=== PATIENT | male | born 1940 | race Caucasian/White ===

== ENCOUNTER 2019-09-24 18:41 | Emergency (ER) | payer OTHER ==
[~2019-09-24] VITALS: Ht 182.9 cm; Wt 93.0 kg
[~2019-09-24 18:41] MED LIST: ALBUTEROL2.5 MG/31 IH; CARDURA1 MG; CEPHALEXIN 500500 M1; COSOPT EYE DROPS5 ML; COZAAR 50 MG TA50 MG PO; CRANBERRY500 M1; FISH OIL 1,2001 EAC3; LEVAQUIN 500 M500 M3; LISINOPRIL20 MG; LORTABELXR; LOW DOSE ASPIRI81 M1 PO; METAMUCIL197.2 GM; MUCINEX22 ML; NIACIN 500 MG500 M1; TESSALON PERLE100 MG PO; TUSSIONEX PENN473 ML PO; VENTOLIN HFA INH8 GM; VITAMIN D400 UNI1; XALATAN2.5 ML; ZPAK PO
[2019-09-24 19:02] LABS: ABSOLUTE BASOPHILS 0.1 thou/uL (0.0-0.2); ABSOLUTE EOSINOPHILS 0.2 thou/uL (0.0-0.7); ABSOLUTE MONOCYTES 0.4 thou/uL (0.0-1.2); BASOPHILS 1.1 %; EOSINOPHILS 2.8 %; HEMATOCRIT 39.1 % (42.0-52.0); HEMOGLOBIN 13.2 gm/dL (14.0-18.0); MCH 30.8 pg (26.0-34.0); MCHC 33.9 g/dL (28.0-37.0); MCV 90.9 fL (80.0-100.0); MONOCYTES 7.6 %; NUCLEATED RBCS 0 /100WBC; PLATELET COUNT* 224 thou/uL (150-400); POLYS 71.5 %; RDW-CV 14.2 % (10.5-14.5); WBC 5.7 thou/uL (4.0-11.0)
[2019-09-24 19:12] LABS: CALCIUM 8.1 mg/dL (8.5-10.1); POTASSIUM 4.1 mmol/L (3.5-5.1)
[2019-09-24 19:16] LABS: PROTIME 10.3 Seconds (9.20-11.50)
[2019-09-24 19:22] LABS: ALBUMIN 3.7 g/dL (3.4-5.0); TOTAL BILIRUBIN 0.4 mg/dL (<0.1-1.0); TOTAL PROTEIN 7.6 g/dL (6.4-8.2)
[2019-09-24 19:37] LABS: URINE BILIRUBIN NEGATIVE (Negative); URINE BLOOD TRACE (Negative); URINE CLARITY CLEAR; URINE COLOR STRAW; URINE GLUCOSE-RANDOM NEGATIVE (Negative); URINE KETONES NEGATIVE (Negative); URINE LEUKOCYTES-REFLEX NEGATIVE (Negative); URINE NITRITE-REFLEX NEGATIVE (Negative); URINE PROTEIN 1+ (Negative); URINE UROBILINOGEN 0.2 E.U./dl (0.2-1.0)
[2019-09-24 20:59] VITALS: BP 143/71
--- NOTE | 2019-09-25 10:35 | EKG ---
[place] [address] ELECTROCARDIOGRAM REPORT Name: SYLVIA LOCKETT Room: [facility]#: [id number] Admission: 09/24/19 Attend Phys: Discharge: 09/24/19 Date of : 36 Report #: [id number] THIS REPORT FOR: //name// [facility] ED Test Date: 2019-09-24 Test Time: 18:46:18 Pat Name: SYLVIA LOCKETT Department: Room: Gender: M Assistant Floor Covering Printer: [place] : 1940 Requested By: Meir Pickering Order Number: [id number] MD: Néstor Escamilla Measurements Intervals [place] Rate: 63 P: 0 [place]: 211 QRS: 31 QRSD: 100 T: 98 QT: 405 QTc: 415 Interpretive Statements Sinus rhythm Abnormal R-wave progression, early transition Minimal ST depression, anterolateral leads Compared to ECG 08/10/2011 14:30:55 ST (T wave) deviation now present Sinus arrhythmia Electronically Signed On 09-25-2019 10:34:56 AIR GUN OPERATOR by Néstor Escamilla [email or web address] <ELECTRONICALLY SIGNED> By: Darwin Escamilla MD, FAC 09/25/19 1034 1846 1846 F. Néstor Escamilla MD, [facility] /EPI
== END 2019-09-24 20:59 | disposition home or self-care (01) ==
LOC: M.ERS 18:41
PROVIDERS: Emergency Medicine
DX: I10 Essential (primary) hypertension (principal); Z88.1 Allergy status to other antibiotic agents; Z88.2 Allergy status to sulfonamides; Z88.6 Allergy status to analgesic agent; Z88.8 Allergy status to other drugs, medicaments and biological substances; Z87.01 Personal history of pneumonia (recurrent)

== ENCOUNTER 2019-10-06 10:52 | Inpatient (IN) | payer OTHER ==
[~2019-10-06] VITALS: Ht 182.9 cm; Wt 93.9 kg
--- NOTE | ~2019-10-06 | EKG ---
[place] [address] ELECTROCARDIOGRAM REPORT Name: SYLVIA LOCKETT Room: [address] IN M.R.#: [id number] Admission: 10/06/19 Attend Phys: Hilary william Sa Discharge: 10/16/19 Date of : 36 Date of Service: 10/14/19 1901 Report #: [id number] THIS REPORT FOR: cc: Perri Celestin MD, Tuongvan T. MD Epiphany, Epiphany MD ~ THIS REPORT FOR: //name// [facility] Test Date: 2019-10-14 Test Time: 19:01:43 Pat Name: SYLVIA LOCKETT Department: Room: [facility] Gender: M Restaurant Cook: [place] : 1940 Requested By: Hilary Hernandez Order Number: [id number] Reading MD: Measurements Intervals [place] Rate: 119 P: 39 CT: 186 QRS: 44 QRSD: 95 T: 56 QT: 367 QTc: 517 Interpretive Statements Sinus tachycardia with irregular rate Probable LVH with secondary repol abnrm Prolonged QT interval Baseline wander in lead(s) V1 Compared to ECG 10/13/2019 12:06:51 Prolonged QT interval now present Sinus rhythm no longer present [email or web address] By: 00 00 Epiphany MD Kristen /EPI
--- NOTE | ~2019-10-06 | EKG ---
[place] [address] ELECTROCARDIOGRAM REPORT Name: SYLVIA LOCKETT Room: [address] ADM IN M.R.#: [id number] Admission: 10/06/19 Attend Phys: Hilary Ritchie Discharge: Date of : 36 Report #: [id number] THIS REPORT FOR: //name// [facility] Test Date: 2019-10-13 Test Time: 12:06:51 Pat Name: SYLVIA LOCKETT Department: Room: [address] Gender: M Office Support Associate: [place] : 1940 Requested By: Hilary Hernandez Order Number: [id number] Reading MD: Measurements Intervals [place] Rate: 72 P: 23 ID: 167 QRS: 37 QRSD: 99 T: 44 QT: 423 QTc: 463 Interpretive Statements Sinus rhythm Borderline repol abnrm, anterolateral leads Compared to ECG 10/10/2019 14:34:25 Atrial premature complex(es) no longer present [email or web address] By: 1206 1206 Epiphany Epiphany, /EPI
[~2019-10-06 10:52] MED LIST changes: -CARDURA1 MG; +CARDURA1 MG PO; -COSOPT EYE DROPS5 ML; +COSOPT EYE OPHTHALMIC; +CRANBERRY200 MG PO; -FISH OIL 1,2001 EAC3; +FISH OIL 1,2001 EAC3 PO; +METAMUCIL0.4 GM PO; -METAMUCIL197.2 GM; -NIACIN 500 MG500 M1; +NIACIN 500 MG500 M1 PO; -VITAMIN D400 UNI1; +VITAMIN D400 UNIT PO; -XALATAN2.5 ML; +XALATAN2.5 ML OPHTHALMIC
[2019-10-06 10:55] VITALS: BP 148/75
[2019-10-06] MEDS ORDERED: DOXAZOSIN MESYLA2 MG PO (11:04)
[2019-10-06 11:15] LABS: HEMATOCRIT 41.3 % (42.0-52.0); HEMOGLOBIN 13.9 gm/dL (14.0-18.0); MCH 30.8 pg (26.0-34.0); MCHC 33.7 g/dL (28.0-37.0); MCV 91.4 fL (80.0-100.0); MPV 8.2 fl. (7.2-11.1); NUCLEATED RBCS 0 /100WBC; PLATELET COUNT* 236 thou/uL (150-400); RBC 4.52 mil/uL (4.50-6.00); RDW-CV 14.3 % (10.5-14.5); WBC 7.7 thou/uL (4.0-11.0)
[2019-10-06 11:26] LABS: CALCIUM 10.2 mg/dL (8.5-10.1); CREATININE 1.9 mg/dL (0.6-1.3); POTASSIUM 4.5 mmol/L (3.5-5.1)
[2019-10-06 11:31] LABS: ALBUMIN 3.9 g/dL (3.4-5.0); TOTAL BILIRUBIN 0.9 mg/dL (<0.1-1.0); TOTAL PROTEIN 7.8 g/dL (6.4-8.2)
[2019-10-06 11:41] LABS: ABSOLUTE EOSINOPHILS 0.1 thou/uL (0.0-0.7); ABSOLUTE LYMPHOCYTES 0.5 thou/uL (0.8-5.3); ABSOLUTE MONOCYTES 0.2 thou/uL (0.0-1.2); ABSOLUTE NEUTROPHILS 6.9 thou/uL (1.6-8.1); PLATELET ESTIMATE ADEQUATE
[2019-10-06 11:42] LABS: ANISOCYTOSIS 1+; OVALOCYTES 1+; POIKILOCYTOSIS 1+
[2019-10-06 13:51] VITALS: BP 139/70
--- NOTE | 2019-10-06 14:10 | EKG ---
[place] [address] ELECTROCARDIOGRAM REPORT Name: SYLVIA LOCKETT Room: [address] ADM IN M.R.#: [id number] Admission: 10/06/19 Attend Phys: Hilary Ritchie Discharge: Date of : 36 Report #: [id number] THIS REPORT FOR: //name// [facility] ED Test Date: 2019-10-06 Test Time: 11:09:03 Pat Name: SYLVIA LOCKETT Department: Room: [facility] Gender: M Mri Technologist: : 1940 Requested By: Abel Morales Order Number: [id number] MD: Rich Henley Measurements Intervals [place] Rate: 72 P: 70 [place]: 217 QRS: 57 QRSD: 98 T: 73 QT: 376 QTc: 412 Interpretive Statements Sinus rhythm Borderline prolonged [place] interval Compared to ECG 09/24/2019 18:46:18 ST (T wave) deviation no longer present Electronically Signed On 10-06-2019 14:10:10 PLISSE MACHINE OPERATOR HELPER by Rich Henley [email or web address] <ELECTRONICALLY SIGNED> By: Rich Henley MD, [facility] 10/06/19 1410 1109 1109 Rich Henley MD, [facility] /EPI
[2019-10-06] MEDS ORDERED: VITAMIN B-121000 MC2 PO (14:20)
[2019-10-06 14:40] VITALS: BP 177/71
[2019-10-06 15:59] LABS: URINE BILIRUBIN NEGATIVE (Negative); URINE BLOOD NEGATIVE (Negative); URINE CLARITY CLEAR; URINE COLOR YELLOW; URINE GLUCOSE-RANDOM NEGATIVE (Negative); URINE KETONES 1+ (Negative); URINE LEUKOCYTES-REFLEX NEGATIVE (Negative); URINE NITRITE-REFLEX NEGATIVE (Negative); URINE PROTEIN NEGATIVE (Negative); URINE UROBILINOGEN 0.2 E.U./dl (0.2-1.0)
[2019-10-06 20:00] VITALS: BP 164/80
[2019-10-06 21:30] VITALS: BP 202/69
[2019-10-07] VITALS: BP 158/75
[2019-10-07 04:17] LABS: HEMATOCRIT 38.2 % (42.0-52.0); HEMOGLOBIN 13.2 gm/dL (14.0-18.0); MCH 31.3 pg (26.0-34.0); MCHC 34.5 g/dL (28.0-37.0); MCV 90.5 fL (80.0-100.0); MPV 8.4 fl. (7.2-11.1); RBC 4.21 mil/uL (4.50-6.00); WBC 5.1 thou/uL (4.0-11.0)
[2019-10-07 04:25] LABS: ALBUMIN 3.1 g/dL (3.4-5.0); CALCIUM 8.9 mg/dL (8.5-10.1); CREATININE 1.7 mg/dL (0.6-1.3); MAGNESIUM 1.7 mg/dL (1.8-2.4); PHOSPHORUS* 4.3 mg/dL (2.5-4.9); POTASSIUM 4.3 mmol/L (3.5-5.1); TOTAL PROTEIN 6.4 g/dL (6.4-8.2)
[2019-10-07 09:50] VITALS: BP 145/51
[2019-10-07 15:30] VITALS: BP 164/67
[2019-10-07 21:30] VITALS: BP 202/69
[2019-10-07 23:36] VITALS: BP 181/72
[2019-10-08 04:30] VITALS: BP 180/73
[2019-10-08 05:35] LABS: CREATININE 1.5 mg/dL (0.6-1.3); POTASSIUM 3.8 mmol/L (3.5-5.1)
[2019-10-08 07:30] VITALS: BP 140/60
[2019-10-08 16:18] VITALS: BP 146/66
[2019-10-08 21:00] VITALS: BP 182/65
[2019-10-08 23:51] VITALS: BP 146/44
[2019-10-09 04:40] LABS: HEMATOCRIT 36.7 % (42.0-52.0); HEMOGLOBIN 12.7 gm/dL (14.0-18.0); MCH 31.4 pg (26.0-34.0); MCHC 34.6 g/dL (28.0-37.0); MCV 90.8 fL (80.0-100.0); MPV 8.5 fl. (7.2-11.1); RBC 4.04 mil/uL (4.50-6.00); RDW-CV 13.8 % (10.5-14.5); WBC 6.4 thou/uL (4.0-11.0)
[2019-10-09 04:56] LABS: CALCIUM 7.9 mg/dL (8.5-10.1); CREATININE 1.6 mg/dL (0.6-1.3); MAGNESIUM 1.9 mg/dL (1.8-2.4); PHOSPHORUS* 2.5 mg/dL (2.5-4.9); POTASSIUM 3.8 mmol/L (3.5-5.1)
[2019-10-09 08:14] VITALS: BP 163/66
[2019-10-09 16:05] VITALS: BP 158/72
[2019-10-09 20:00] VITALS: BP 115/70
[2019-10-10 04:36] LABS: ABSOLUTE LYMPHOCYTES 0.4 thou/uL (0.8-5.3); ABSOLUTE MONOCYTES 0.7 thou/uL (0.0-1.2); ABSOLUTE NEUTROPHILS 3.8 thou/uL (1.6-8.1); BASOPHILS 0.2 %; EOSINOPHILS 0.2 %; HEMATOCRIT 35.1 % (42.0-52.0); HEMOGLOBIN 12.2 gm/dL (14.0-18.0); LYMPHOCYTES 7.2 %; MCH 31.5 pg (26.0-34.0); MCHC 34.7 g/dL (28.0-37.0); MPV 8.6 fl. (7.2-11.1); NUCLEATED RBCS 0 /100WBC; PLATELET COUNT* 210 thou/uL (150-400); POLYS 78.4 %; RBC 3.86 mil/uL (4.50-6.00); RDW-CV 14.1 % (10.5-14.5); WBC 4.9 thou/uL (4.0-11.0)
[2019-10-10 04:42] LABS: CALCIUM 7.2 mg/dL (8.5-10.1); CREATININE 1.5 mg/dL (0.6-1.3); MAGNESIUM 1.8 mg/dL (1.8-2.4); PHOSPHORUS* 3.7 mg/dL (2.5-4.9); POTASSIUM 3.8 mmol/L (3.5-5.1)
[2019-10-10 07:50] VITALS: BP 146/72
--- NOTE | 2019-10-10 14:42 | EKG ---
[place] [address] ELECTROCARDIOGRAM REPORT Name: SYLVIA LOCKETT Room: [address] ADM IN M.R.#: [id number] Admission: 10/06/19 Attend Phys: Hilary Ritchie Discharge: Date of : 36 Report #: [id number] THIS REPORT FOR: //name// [facility] Test Date: 2019-10-10 Test Time: 14:34:25 Pat Name: SYLVIA LOCKETT Department: Room: [address] Gender: M Technical Solutions Director: : 1940 Requested By: Hilary Hernandez Order Number: [id number] Reading MD: Rich Henley Measurements Intervals [place] Rate: 87 P: -16 [place]: 161 QRS: 18 QRSD: 93 T: 3 QT: 329 QTc: 396 Interpretive Statements Sinus rhythm Atrial premature complexes Nonspecific repol abnormality, diffuse leads Compared to ECG 10/06/2019 11:09:03 Atrial premature complex(es) now present Early repolarization now present Electronically Signed On 10-10-2019 14:41:52 BOOM STICK MAN by Rich Henley [email or web address] <ELECTRONICALLY SIGNED> By: Rich Henley MD, FAC 10/10/19 1441 1434 1434 Rich Henley MD, [facility] /EPI
[2019-10-10 16:00] VITALS: BP 161/75
[2019-10-10 19:30] VITALS: BP 153/73
[2019-10-11 05:34] LABS: ABSOLUTE EOSINOPHILS 0.1 thou/uL (0.0-0.7); ABSOLUTE LYMPHOCYTES 0.6 thou/uL (0.8-5.3); ABSOLUTE MONOCYTES 0.9 thou/uL (0.0-1.2); BASOPHILS 0.4 %; EOSINOPHILS 1.9 %; HEMATOCRIT 32.7 % (42.0-52.0); HEMOGLOBIN 11.2 gm/dL (14.0-18.0); LYMPHOCYTES 9.5 %; MCHC 34.1 g/dL (28.0-37.0); MCV 90.9 fL (80.0-100.0); MONOCYTES 13.1 %; MPV 9.1 fl. (7.2-11.1); NUCLEATED RBCS 0 /100WBC; PLATELET COUNT* 194 thou/uL (150-400); POLYS 75.1 %; RDW-CV 13.8 % (10.5-14.5); WBC 6.6 thou/uL (4.0-11.0)
[2019-10-11 05:46] LABS: CALCIUM 7.4 mg/dL (8.5-10.1); CREATININE 1.5 mg/dL (0.6-1.3); MAGNESIUM 1.9 mg/dL (1.8-2.4); PHOSPHORUS* 1.9 mg/dL (2.5-4.9); POTASSIUM 3.5 mmol/L (3.5-5.1)
[2019-10-11 07:30] VITALS: BP 186/71
[2019-10-11 16:00] VITALS: BP 186/76
[2019-10-11 18:10] VITALS: BP 183/69
[2019-10-11 19:05] VITALS: BP 173/74
[2019-10-11 22:26] VITALS: BP 164/62
[2019-10-12 02:59] VITALS: BP 182/78
[2019-10-12 06:54] LABS: HEMATOCRIT 34.5 % (42.0-52.0); HEMOGLOBIN 11.8 gm/dL (14.0-18.0); MCHC 34.3 g/dL (28.0-37.0); MCV 90.4 fL (80.0-100.0); MPV 9.5 fl. (7.2-11.1); RBC 3.81 mil/uL (4.50-6.00); RDW-CV 13.7 % (10.5-14.5); WBC 8.2 thou/uL (4.0-11.0)
[2019-10-12 07:14] LABS: CALCIUM 7.6 mg/dL (8.5-10.1); CREATININE 1.3 mg/dL (0.6-1.3); MAGNESIUM 1.7 mg/dL (1.8-2.4); PHOSPHORUS* 2.2 mg/dL (2.5-4.9); POTASSIUM 3.4 mmol/L (3.5-5.1)
[2019-10-12 09:00] VITALS: BP 172/76
--- NOTE | 2019-10-12 10:07 | PATH ---
[address] [address] PATHOLOGY RPT PROCEDURE Name: TACO LOCKETT Room: [address] IN ..#: [id number] Admission: 10/06/19 Date of : 36 Discharge: Report #: [id number] Path Case #: [id number] L[facility] Accession Number: [id number] . 01 Material submitted: . small bowel - DISTAL SMALL BOWEL WITH MECKEL'S DIVERTICULUM. Modifiers: distal . 01 Clinical history: . Pre-op diagnosis: Small bowel obstruction Post-op diagnosis: Meckel's diverticulum, small bowel obstruction Stitch on proximal end . 02 Diagnosis: Distal small bowel with Meckel's diverticulum: - Segment of benign small intestine with Meckel's diverticulum and with discontinuous chronic active inflammation including mucosal necrosis and with slight luminal stricturing distal to Meckel's diverticulum. - One benign and hyperplastic mesenteric lymph node. See comment. . (HERMINIA:leighton; 10/11/2019) S 10/11/2019 1347 Local . 02 Comment: No granulomas, viral inclusions or dysplasia are present. The inflammation extends into the submucosa but is not seen to extend through the muscularis propria. Crohn's disease should be considered in the clinical differential. (HERMINIA:leighton; 10/11/2019) . 02 Electronically signed: . Enrique Aguilar MD, Pathologist NPI- [id number] . 01 Gross description: . The specimen is received in formalin, labeled "Taco Lockett, distal small bowel with Meckel's diverticulum, stitch ruggiero proximal end". Received is an oriented segment of small bowel measuring 21.1 cm in length and ranging in diameter from 1.8 to 3.2 cm. Both margins are stapled closed and a suture is present at one margin designating this as the proximal aspect. The serosal surface is pink-phillips to pink-gaston and smooth in appearance. 2.5 cm from the proximal margin, a Meckel's diverticulum outpouching is identified measuring 1.7 x 1.7 x 1.2 cm. The attached mesenteric fat measures up to 4.2 cm in thickness. Distal to the Meckel's diverticulum, the specimen is kinked creating a slight stricture. The specimen is opened along the antimesenteric line to reveal light gaston to pink-gaston mucosa with moderate architectural folding. There are two pink-red patches, which have a cobblestone appearance, measuring 4.5 x 2.5 [place] [address] PATHOLOGY RPT PROCEDURE Name: TACO LOCKETT Room: [address] IN [facility].#: [id number] Admission: 10/06/19 Date of : 36 Discharge: Report #: [id number] Path Case #: [id number] (which is 3.6 cm from the proximal margin) and 4.2 x 3.5 cm (which is 5.3 cm from the distal margin). Sectioning through the attached mesenteric fat reveals a single lymph node measuring 0.7 cm in maximum dimensions. The specimen is submitted representatively as follows: . A1 proximal margin, en face A2 distal margin, en face A3 Meckel's diverticulum A4-A5 advertising sales representative sections of cobblestone-appearing mucosa A6 normal-appearing mucosa A7 bisected lymph node. (CAA; 10/10/2019) QAC/QAC 10/11/2019 1345 Local . 02 Pathologist provided ICD-10: K29.80, K55.049 . 02 CPT . 954754 Specimen Comment: A courtesy copy of this report has been sent to [phone] Specimen Comment: Report sent to Specimen Comment: A duplicate report has been generated due to demographic updates. Performed at: 01 [facility] [address], [place], [place] [id number] MD Jakob Mcdaniel MD Phone: [phone] Performed at: 02 [facility] [address], [place], [place] [id number] MD Enrqiue Aguilar MD Phone: [phone]
[2019-10-12 16:00] VITALS: BP 174/66
[2019-10-12 21:00] VITALS: BP 160/75
[2019-10-13] VITALS (9 sets, daily range): BP systolic 99–170; BP diastolic 40–74
[2019-10-13 04:03] LABS: HEMATOCRIT 37.9 % (42.0-52.0); HEMOGLOBIN 12.8 gm/dL (14.0-18.0); MCH 30.6 pg (26.0-34.0); MCHC 33.8 g/dL (28.0-37.0); MCV 90.7 fL (80.0-100.0); RBC 4.18 mil/uL (4.50-6.00); RDW-CV 13.6 % (10.5-14.5); WBC 10.1 thou/uL (4.0-11.0)
[2019-10-13 04:43] LABS: CALCIUM 7.8 mg/dL (8.5-10.1); CREATININE 1.5 mg/dL (0.6-1.3); MAGNESIUM 2.1 mg/dL (1.8-2.4); PHOSPHORUS* 3.5 mg/dL (2.5-4.9); POTASSIUM 3.2 mmol/L (3.5-5.1)
[2019-10-14] VITALS (7 sets, daily range): BP systolic 74–164; BP diastolic 41–79
[2019-10-14 04:28] LABS: CALCIUM 7.1 mg/dL (8.5-10.1); CREATININE 1.3 mg/dL (0.6-1.3); POTASSIUM 3.3 mmol/L (3.5-5.1)
[2019-10-14 07:53] LABS: HEMATOCRIT 33.9 % (42.0-52.0); HEMOGLOBIN 11.6 gm/dL (14.0-18.0); MCH 30.8 pg (26.0-34.0); MCHC 34.3 g/dL (28.0-37.0); MCV 89.7 fL (80.0-100.0); MPV 8.2 fl. (7.2-11.1); RBC 3.78 mil/uL (4.50-6.00); RDW-CV 13.7 % (10.5-14.5); WBC 11.3 thou/uL (4.0-11.0)
[2019-10-15] VITALS: BP 119/51
[2019-10-15 04:00] VITALS: BP 139/50
[2019-10-15 05:03] LABS: HEMATOCRIT 29.3 % (42.0-52.0); HEMOGLOBIN 10.3 gm/dL (14.0-18.0); MCH 31.5 pg (26.0-34.0); MCHC 35.1 g/dL (28.0-37.0); MCV 89.7 fL (80.0-100.0); MPV 8.2 fl. (7.2-11.1); RBC 3.27 mil/uL (4.50-6.00); RDW-CV 13.5 % (10.5-14.5); WBC 9.2 thou/uL (4.0-11.0)
[2019-10-15 05:14] LABS: CALCIUM 6.9 mg/dL (8.5-10.1); CREATININE 1.5 mg/dL (0.6-1.3); MAGNESIUM 1.7 mg/dL (1.8-2.4); PHOSPHORUS* 2.8 mg/dL (2.5-4.9)
[2019-10-15 05:17] LABS: POTASSIUM 2.9 mmol/L (3.5-5.1)
[2019-10-15 12:00] VITALS: BP 102/63
[2019-10-15 16:00] VITALS: BP 106/42
[2019-10-15 19:50] VITALS: BP 133/63
[2019-10-16] VITALS: BP 144/64
[2019-10-16 04:00] VITALS: BP 134/59
[2019-10-16 05:35] LABS: HEMATOCRIT 30.4 % (42.0-52.0); HEMOGLOBIN 10.5 gm/dL (14.0-18.0); MCH 31.1 pg (26.0-34.0); MCHC 34.6 g/dL (28.0-37.0); MPV 8.4 fl. (7.2-11.1); RBC 3.37 mil/uL (4.50-6.00); RDW-CV 13.2 % (10.5-14.5); WBC 7.3 thou/uL (4.0-11.0)
[2019-10-16 05:40] LABS: ALBUMIN 2.2 g/dL (3.4-5.0); CALCIUM 7.3 mg/dL (8.5-10.1); CREATININE 1.4 mg/dL (0.6-1.3); MAGNESIUM 1.9 mg/dL (1.8-2.4); PHOSPHORUS* 2.7 mg/dL (2.5-4.9); POTASSIUM 3.6 mmol/L (3.5-5.1)
[2019-10-16 08:00] VITALS: BP 138/69
[2019-10-16 12:00] VITALS: BP 140/58
[2019-10-16 13:58] VITALS: BP 140/58
[2019-10-16] MEDS ORDERED: AUGMENTIN 875-1 EACH PO (14:10)
--- NOTE | 2019-10-17 07:18 | OP ---
[address] [address] OPERATIVE REPORT Name: LEVYSYLVIA L Room: [address] IN M.R.#: [id number] Admission: 10/06/19 Attend Phys: Hilary Ritchie Discharge: 10/16/19 Date of : 36 Report #: [id number] THIS REPORT FOR: //name// CC: Hilary Larsen Celestin DICTATED BY: Denton Muro DO DATE OF SERVICE: 10/09/2019 This is Denton Muro DO, PGY-3, dictating for Nica Thomas. PREOPERATIVE DIAGNOSIS: Small-bowel obstruction. POSTOPERATIVE DIAGNOSES: Small-bowel obstruction, Meckel's diverticulum, terminal ileitis with creeping fat. PRIMARY SURGEON: Nica Thomas DO CO-SURGEONS: Denton Muro DO, PGY-3, and Riley Hatfield, MS3. OPERATIONS PERFORMED: Exploratory laparotomy, lysis of adhesion, distal ileum resection with primary anastomosis. ANESTHESIA: Combined, general and local. ESTIMATED BLOOD LOSS: 10 mL. SPECIMEN REMOVED: Segment of distal ileum containing Meckel's diverticulum. COMPLICATIONS: None. FINDINGS: Grossly distended small bowel from the ligament of Treitz to TI. Single omental adhesion to the small bowel, not causing obstruction. Distal ileum with wall thickening and creeping fat and a wide mouth Meckel's diverticulum of the distal ileum. The ileal thickening and Meckel's diverticulum presumed to be the etiology of small-bowel obstruction. Remainder of the colon, small bowel, despite being grossly distended, showed no other acute processes. Stomach, liver, gallbladder, and appendix all grossly unremarkable. INDICATIONS FOR PROCEDURE: The patient is a pleasant 79-year-old male, who presented to [facility] with chief complaint of abdominal distention, pain, bloating, nausea, vomiting, and inability to tolerate foods. He reported that his abdominal distention has been going on for approximately 1 to 1.5 months and was progressively getting worse to the point [place] [address] OPERATIVE REPORT Name: SYLVIA LOCKETT Room: [address] IN [facility].#: [id number] Admission: 10/06/19 Attend Phys: Hilary Ritchie Discharge: 10/16/19 Date of : 36 Report #: [id number] longer tolerate much p.o. intake. He also had decreased bowel function with complete cessation prior to arrival. The patient was found to have a grossly distended stomach and small bowel with transition point in the right lower quadrant on CT of the abdomen and pelvis. We attempted conservative management of small-bowel obstruction with NG tube decompression, n.p.o., IV fluids, pain and nausea control, serial abdominal examinations, and x-rays. Over the clinical course, the patient's nausea and pain was minimal and well controlled. His NG tube output continued to decrease. He had return of flatus with no significant changes on abdominal x-rays and his abdomen remained distended, although soft and non-peritoneal. On 10/08/2019, we discussed that if he did not make progression by today, 10/09/2019, that we would recommend proceeding to the operating room for exploratory laparotomy. The patient did, however, have a large loose bowel movement overnight, but his x-rays continued to show quite a good amount of distended small bowel up to almost 6 cm. We recommended proceeding to the OR for exploratory laparotomy. Full discussion of procedure, alternatives, risks, and possible complications were discussed to include but not limited to bleeding, infection, postoperative pain, scarring, hernia, injury to other underlying abdominal organs mainly bowel or bladder, bowel resection, malignant findings on pathology, temporary or permanent ostomy, anastomotic leak, need for further surgery, cardiopulmonary collapse and even as well as anesthesia risks. The patient voiced understanding of these risks and agreed to proceed with surgery. DESCRIPTION OF PROCEDURE: The patient was again seen and examined in the preoperative holding area. Fully informed written consent was obtained. Abdomen was marked with a marking pen. Preoperative antibiotics, 2 grams Ancef were given. The patient was subsequently transported to the operating room suite and placed on the operating room table in the supine position. At this time, Anesthesia induced general anesthesia via endotracheal intubation and this was successful. Arms were placed outstretched on arm boards, padded and protected and strapped with Velcro safety straps. SCDs were placed to the bilateral lower extremity calves. Grounding pad was placed to the right lateral thigh. Grounding pad was also then secured to the Bovie at the Bovie machine. A safety strap was placed across the patient's lap. Mitch Hugger was placed across the patient's chest for intraoperative warming. He was then prepped and draped using standard sterile fashion and timeout was performed prior to the onset of the procedure. We began by making a midline laparotomy incision assisted between the umbilicus and the xiphoid around the left side of the abdomen and midway between the umbilicus and the pubic tubercles using electrocautery, we dissected down to reach the level of fascia. Fascia was scored, grasped with bilateral Kochers, elevated and further transected. Next, the peritoneum was pierced with a hemostat and was transected along the length of the incision. There was some serous ascites that was pretty minimal. There was grossly distended small bowel. At this time, the small bowel was evaluated from the ligament of Treitz to the terminal ileum. There was noted to be an adhesion of the right upper quadrant of the omentum to the [place] [address] OPERATIVE REPORT Name: SYLVIA LOCKETT Laly Room: [address]#: [id number] Admission: 10/06/19 Attend Phys: Hilary Ritchie Discharge: 10/16/19 Date of : 36 Report #: [id number] was not causing the obstruction, but was ligated. As we approached the terminal ileum, there was noted to be some mild hyperemic small bowel with a wide mouth Meckel's diverticulum approximately 2 feet from the ileocecal valve as we continued on towards the terminal ileum where it met the cecum. There was noted to be creeping fat around the ileum as well as some grossly notable wall thickening. There were no other acute findings noted with running of the small bowel. We then proceeded to evaluate the colon, appendix, right transverse, left sigmoid colon were all unremarkable. Sigmoid colon was noted to be very redundant and distended, but appeared very healthy. Stomach, liver, gallbladder were also unremarkable. At this time, the decision was made to resect the segment of distal ileum containing the Meckel's diverticulum and the thickened ileum with creeping fat. There was noted to be a proper amount of terminal ileum to perform a dkbk-zb-dnqf anastomosis without need for cecectomy or right colectomy as most distal ileum appeared very healthy as did the cecum. At this time, the affected area of small bowel was resected using a hemostat to make a window through the mesentery and GEORGE 50 mm blue load was used to take the distal segment. This was then performed in the exact same fashion just to 30 cm proximal to the Meckel's diverticulum. LigaSure was then used to transect the mesentery. The specimen was then marked with a silk suture at the proximal end near the Meckel's diverticulum for pathology. Specimen was then passed off to be sent for permanent pathology. At this time, we proceeded with [id number]-[id number] small bowel anastomosis. The staple lines at the antimesenteric border were grasped gently with Allis clamps. The antimesenteric borders were then brought together. The 2-0 interrupted silk sutures in Lembert fashion were placed to approximate these together. Heavy curved scissors were used to make the entry into the small bowel for the anastomosis and an additional GEORGE blue load was used to create alwz-vo-pmog anastomosis. Next, a TA-60 blue load stapler was used to close the anastomosis at the distal end. We then used interrupted silk sutures to close the mesenteric defect. The anastomosis was widely patent and there was no hemorrhaging from any staple lines. After this was performed, we again ran the small bowel at this time from the terminal ileum back to the ligament of Treitz noting no additional acute findings. A small bowel was placed back into the abdomen and we began with abdominal closure. Two 2-0 PDS sutures were used to close the fascia and peritoneum using the small bites technique with overlapping. Once the fascia was closed, a layered closure was then performed of the subcutaneous deep dermal layers using interrupted 3-0 Vicryl. Skin was then closed using a stapler. Abdomen was cleansed using wet and dry lap. A 30 mL of 0.5% Marcaine were used in total for local anesthetic. A Prevena wound VAC was placed for sterile dressing with excellent suction. The patient was extubated in the OR, transferred to PACU in stable condition after brief recovery from anesthesia. Plan to return to the floor for ongoing care. <ELECTRONICALLY SIGNED> By: Nica Thomas DO 10/17/19 0718 1438 1555Cgarfield Thomas DO /nt
== END 2019-10-16 15:31 | disposition home or self-care (01) | DRG 330 ==
LOC: M.ERS 10:52 → M.TBA-ER 13:28 → M.3W 13:28 → M.2W 10-14 21:30
PROVIDERS: Emergency Medicine Emergency Medical Services; Surgery; ADMIT Family Medicine
PROC: 0D9670Z Drainage of Stomach with Drainage Device, Via Natural or Artificial Opening (ICD-10-PCS; principal; 2019-10-07)
PROC: 0DBB0ZZ Excision of Ileum, Open Approach (ICD-10-PCS; 2019-10-09)
DX: K56.609 Unspecified intestinal obstruction, unspecified as to partial versus complete obstruction (principal); N17.9 Acute kidney failure, unspecified; K50.00 Crohn's disease of small intestine without complications; E87.0 Hyperosmolality and hypernatremia; N18.9 Chronic kidney disease, unspecified; I12.9 Hypertensive chronic kidney disease with stage 1 through stage 4 chronic kidney disease, or unspecified chronic kidney disease; E11.22 Type 2 diabetes mellitus with diabetic chronic kidney disease; K59.00 Constipation, unspecified; E83.52 Hypercalcemia; E78.5 Hyperlipidemia, unspecified; E83.42 Hypomagnesemia; N40.1 Benign prostatic hyperplasia with lower urinary tract symptoms; R33.8 Other retention of urine; K56.0 Paralytic ileus; I95.9 Hypotension, unspecified; I48.91 Unspecified atrial fibrillation; E86.0 Dehydration; K21.9 Gastro-esophageal reflux disease without esophagitis; Z79.899 Other long term (current) drug therapy; Z79.4 Long term (current) use of insulin; Z88.6 Allergy status to analgesic agent; Z88.1 Allergy status to other antibiotic agents; Z88.8 Allergy status to other drugs, medicaments and biological substances; Z98.52 Vasectomy status; Z87.01 Personal history of pneumonia (recurrent); Z82.0 Family history of epilepsy and other diseases of the nervous system; Z82.49 Family history of ischemic heart disease and other diseases of the circulatory system; Q43.0 Meckel's diverticulum (displaced) (hypertrophic); Z80.9 Family history of malignant neoplasm, unspecified; Z86.718 Personal history of other venous thrombosis and embolism; Z79.01 Long term (current) use of anticoagulants